=== PATIENT | male | born 1940 | race Caucasian/White ===

== ENCOUNTER 2016-11-26 14:02 | Observation (INO) | payer OTHER ==
--- NOTE | 2016-11-26 14:32 | RAD ---
INDICATION: Aphasia and visual disturbance COMPARISON: CT of the brain dated December 02, 2015 TECHNIQUE: Contiguous axial sections of the brain were obtained from the skull base to the vertex without contrast. FINDINGS: The ventricles, cisterns and sulci exhibit symmetric involutional changes unchanged from the previous CT of the brain. There is mild periventricular and subcortical white matter hypoattenuation compatible chronic microvascular disease. The lai-white matter differentiation is adequately maintained and there is no sulcal effacement. No significant focal abnormality or mass effect is present. There is no evidence for intracranial hemorrhage. No significant focal osseous abnormality is present. The mastoid air cells appear clear. There is mild mucosal thickening of the visualized maxillary sinuses and bilateral ethmoid air cells. IMPRESSION: No acute abnormality including signs of territorial infarction or acute extra-axial hemorrhage. Findings were reported to Dr. Brown over the telephone at 1425 hours on November 26, 2016.
[2016-11-26 14:49] LABS: Hematocrit 36 % (42-52); Hemoglobin 12.2 g/dl (14.0-18.0); Mean Corpuscular HGB Conc 34 g/dl (31-36); Mean Corpuscular Hemoglobin 29 pg (27-31); Mean Corpuscular Volume 86 fL (80-94); Mean Platelet Volume 8 um3 (7.4-10.4); Red Blood Count 4.19 10^6/ul (4.0-5.4); Red Cell Distribution Width 14 % (10.5-15); White Blood Count 6.6 10^3/ul (3.5-10.8)
[2016-11-26 15:02] LABS: Albumin 4.2 g/dL (3.2-5.2); BUN/Creatinine Ratio 15.6 (8-20); Calcium 9.5 mg/dL (8.6-10.3); EGFR African American 54.6 (>60); EGFR Non-African American 42.5 (>60); Globulin 3.3 g/dL (2-4); HDL Cholesterol 36.8 mg/dL; Potassium 4.5 mmol/L (3.5-5.0); Total Bilirubin 0.4 mg/dL (0.2-1.0); Total Protein 7.5 g/dL (6.4-8.9)
[2016-11-26] MEDS ORDERED: Iodixanol* (CONTRAST) 320 MG/ML 100 ML SDV IV ONE (15:15)
--- NOTE | 2016-11-26 15:20 | RAD ---
INDICATION: Expressive aphasia COMPARISON: Chest x-ray January 25, 2006 TECHNIQUE: Single AP portable view of the chest was obtained. FINDINGS: Image quality is compromised due to the relative inferiority of a portable chest x-ray. The heart and mediastinum exhibit normal size and contour. The lungs are grossly clear. There is no evidence of a large pleural effusion. Visualized bones are normal for the patient's age. IMPRESSION: No radiographic evidence for acute cardiopulmonary abnormality on this portable chest x-ray.
[2016-11-26] MEDS ORDERED: Dextrose 50% Syringe 50 ML* 25 GM/50 ML SYRINGE IV PUSH PRN (16:25)
--- NOTE | 2016-11-26 17:05 | RAD ---
CPT II: CPT II Codes: 3100F INDICATION: Aphasia COMPARISON: Same day CT of the brain without contrast TECHNIQUE: A CT angiogram of the head and neck was performed with 80 cc of Visipaque 320. Contiguous axial sections were obtained from the thoracic inlet through the [place] of [place]. Images were reconstructed in the sagittal, coronal planes and in a 3-D volume rendered format. The distal cervical internal carotid artery diameter is used as the denominater for stenosis measurement. CTA NECK: The common and internal carotid arteries are patent without hemodynamically significant stenosis. There is calcified atherosclerosis at the arch of the aorta. Right: Below the carotid bifurcation the right common carotid artery measures 6 mm in diameter. Eccentric partially calcified atherosclerosis at the carotid bulb narrows the proximal most portion of the right internal carotid artery to 4 mm in diameter. This yields approximately 33% degree stenosis. Left: Measured immediately below the carotid bifurcation the left common carotid artery measures 6 mm in diameter and the left internal carotid artery immediately beyond the bifurcation also measures 6 mm in diameter yielding 0% degree stenosis. The vertebral arteries are patent without gross abnormality. CTA of the brain: The horizontal portion of the petrous carotid arteries exhibit narrowing and irregularity (for example image 199 of 301). At the clinoid level there is calcified atherosclerosis worse in the left than the right, of the bilateral internal carotid arteries. The anterior and middle cerebral arteries appear are patent without high grade stenosis or occlusion. The vertebral, basilar and posterior cerebral arteries appear patent without high grade stenosis or occlusion. The posterior communicating arteries appear to be absent bilaterally. No focal luminal filling defect, aneurysm or vascular malformation is seen. IMPRESSION: 1. According to the thoracic criteria there is approximately 33% degree narrowing at the right carotid bulb due to partially calcified atherosclerosis. 2. Elsewhere there is mixed attenuation atherosclerotic disease of the arteries of the head and neck as described above. 3. there is no focal occlusion or other acute arterial abnormality in the head and neck.
[2016-11-26] MEDS: Insulin LISPRO* 1 UNITS UNIT SUBCUT SCH (17:26)
[2016-11-26 18:05] LABS: Urine Bilirubin Negative (Negative); Urine Glucose Negative (Negative); Urine Nitrite Negative (Negative)
--- NOTE | 2016-11-26 18:24 | PN ---
Hospitalist Progress Note HOSPITALIST ADDENDUM Case reviewed and d/w oMo QUINONEZ. Mr. Da Silva is a 76yo M with PMH of TIA, who presented to ED with c/o visual changes. Labs, CT brain and EKG reviewed. Neurology consult requested for possible CVA. Agree with current management.
[2016-11-26 19:00] LABS: HDL Cholesterol 32.1 mg/dL
--- NOTE | 2016-11-26 20:06 | CONS ---
NEUROLOGY CONSULTATION REPORT: DATE OF CONSULT: 11/26/16 The patient is in the emergency department. REASON FOR CONSULT: Anirudh Delgado. 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 He was reading and suddenly noticed that he was having difficulty reading, which sounds like he was having difficulty comprehending what he was reading. However, he tested his vision with each eye independently and noticed that his vision in his right eye was significantly worse than the vision in his left eye. In additional to this, he began trying to think of names of his physicians and he was unable to think of his primary care physician 's name and was unable to think of the word brim molder as well. He alerted his that something was wrong and presented for evaluation. Over the course of his evaluation in the emergency department, his symptoms were significantly improving. He notes that he had a TIA approximately a year ago with symptoms of difficulty getting words out. This was very brief and he did not seek care initially for this episode but subsequently had a workup including a recent 30- day cook manager, carotid ultrasound about a year ago , and he was recently changed from aspirin to Plavix by his recollection. He was not given TPA in the emergency department as his NIH stroke scale was 0 and his symptoms were significantly improving. PAST MEDICAL HISTORY: 1. Diabetes. 2. Hypertension. 3. Hyperlipidemia. 4. TIA, November 2015. MEDICATIONS: 1. Metformin 500 mg twice daily. 2. Cholesterol medications, which the patient reports was recently changed and he is not sure of the name. The medication listed in the computer is Pravachol 20 mg daily but not certain that he is still on this medication. 3. Fish oil 1000 mg daily. 4. Metoprolol 25 mg daily. 5. Enalapril 10 mg daily. 6. Plavix 75 mg daily. ALLERGIES: ATORVASTATIN causes myalgias. FAMILY HISTORY: There is a family history of diabetes as well as heart disease and heart attacks but all in people of greater than 80 years old. He also thinks his paternal grandfather may have passed from stroke. 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 He is a nonsmoker. He drinks alcohol occasionally. He denies any illicit drug use. He lives with his . REVIEW OF SYSTEMS: Negative aside from as mentioned in the HPI. PHYSICAL EXAMINATION: Vital Signs: Temperature 98 degrees, blood pressure 156/ 114 on admission and recheck after his CT scan was 166/70, heart rate 68 and he is in normal sinus rhythm, oxygen saturation 98% on room air. On general examination, he is in no acute distress. He is mildly obese. The heart reveals regular rate and rhythm with no murmurs, rubs, or gallops. Lungs are clear to auscultation bilaterally. There are no carotid bruits. He has some lower extremity edema. On neurologic examination, he is fully awake, alert, and oriented. Naming, reading of the stroke cards is fully intact. He was able to describe the cookie theft picture without difficulty. Visual acuity in the right eye was 20/ 100 and in the left eye was 20/30 with 1 error. No red desaturation. Pupils are equal, round, and reactive from 3 to 2 mm bilaterally. Versions are full without nystagmus. Visual uribe are full to confrontation. Facial sensation and musculature is full and symmetric. Hearing is intact to finger rub. The palate elevates symmetrically and tongue protrudes in the midline. Shoulder shrug is 5/5 and symmetric. On motor examination, there is normal bulk and tone in the upper and lower extremities. Strength is full without any pronator drift. Sensation is intact to light touch and there is no extinction to double simultaneous stimulation in the upper or lower extremities. Finger-to- nose and becv-vf-dfbv are intact without ataxia. Reflexes are 2+ in the upper extremities, 2+ at the knees and absent at the ankles with downgoing toes bilaterally. He was not ambulated in the emergency department. NIH stroke scale was 0. DATA: Laboratory data is pending at this time. Noncontrast brain CT was personally reviewed and showed no evidence of acute or subacute ischemia, no hemorrhage. Carotid Dopplers done in November 2015 indicated there was less than 50% stenosis bilaterally. IMPRESSION: Bertarnd Da Silva is a 76-year-old man with multiple vascular risk factors presenting with transient neurologic difficulties characterized by difficulty reading, decreased vision in the right eye, as well as trouble thinking of names of people he should know. These problems improved over the course of his emergency department evaluation, his NIH stroke scale was 0 and he was not given TPA as a result. He should be admitted to the hospital for a TIA workup, which will include a CT angiogram of the head and neck and monitoring on telemetry. He mentioned that his recent event monitor showed some sort of abnormality but he is not sure what this was or the significance of this. This information is not available at the time of this dictation. At this time, we will continue him on Plavix but consideration to be given to changing to Aggrenox. He should have an MRI of the brain as well but this can likely wait until he is an outpatient. He should also have echocardiogram with bubble study and measuring of his lipids and hemoglobin A1c. Thank you for this consultation. [id number]/[facility] #: [id number] WYATT
--- NOTE | 2016-11-26 20:47 | HP ---
ADMISSION HISTORY AND PHYSICAL: DATE OF ADMISSION: 11/26/16 PRIMARY CARE PROVIDER: Dr. Blanco. PRIMARY EMPLOYEE RELATIONS ADVISOR: Dr. Morris. CONSULTING NEUROLOGIST: Dr. Ham. ATTENDING PHYSICIAN: Ghassan Garcia MD* (DICTATED BY CRISTIANO CONNELLY) CHIEF COMPLAINT: Blurred vision and garbled speech. HISTORY OF PRESENT ILLNESS: This is a 76-year-old gentleman with a history of prior TIA, known coronary artery disease status post PCI in 2002 as well as moderate aortic stenosis, hypertension, and controlled hzr-ywzzxva-yagmarrra diabetes. He presented to the emergency department with difficulty speaking and blurred vision. The patient states that he was having some difficulty reading this morning due to blurred vision and upon covering each eye, it seems that his right eye was significantly blurred. He then developed some difficulty speaking that lasted for about 45 minutes. He had no associated weakness, numbness, or tingling. No tumbling or falling. No complaints of chest pain, palpitations, or shortness of breath. The patient's difficulty with speech and word finding lasted approximately 45 minutes. He believes his vision has improved but states that his right eye is still blurred. He is unsure of the acuity of his right eye, the vision in his right eye being blurred as he does believe that his binocular vision has improved back to baseline for him. Of note, the patient's vascular medications have recently been changed within the last 10 to 14 days. He was switched from full dose aspirin to Plavix and from pravastatin to Crestor. The patient states that there was no acute event that prompted these medication changes. From the description, it sounds like there is a desire to be more aggressive with risk management to avoid recurrent CVA. The patient is followed by Dr. Morris and based on chart review appears to have last been seen in August. He underwent thorough evaluation following that for paroxysmal atrial fibrillation. He underwent a 24-hour Holter monitor , which did not show any significant dysrhythmias and then a 30-day event monitor that showed one 5-beat run of V-tach and a short run of rather slow SVT during both of which he was asymptomatic. Background rhythm was otherwise sinus , no AFib identified. The patient notes that his diabetes is well controlled. His last hemoglobin A1c was 5.6%. PAST MEDICAL HISTORY: 1. Stage 3 chronic kidney disease. 2. Uff-qbuhsgu-qbdakqtgz diabetes - well controlled. 3. History of TIA, November 2015. 4. Hypertension. 5. Coronary artery disease, status post PCI in 2002. 6. Moderate aortic stenosis with last echo being 1 year ago. PAST SURGICAL HISTORY: 1. Bilateral total hip arthroplasty. 2. PCI, 2002. 3. Ankle surgery. 4. Shoulder surgery. HOME MEDICATIONS: 1. Plavix 75 mg p.o. daily. 2. Enalapril 10 mg p.o. daily. 3. Glipizide 5 mg p.o. daily. 4. Metoprolol succinate 25 mg p.o. daily. 5. Fish oil 1000 mg p.o. daily. 6. Crestor 10 mg p.o. daily. 7. Metformin 500 mg p.o. twice daily. 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 He was a social smoker for several years with less than 10 pack a year history but quit about 35 years ago. He has occasional alcohol consumption and lives with his and son. REVIEW OF SYSTEMS: As noted above in HPI and otherwise negative. PHYSICAL EXAMINATION GENERAL: This is a very pleasant elderly gentleman who appears younger than his stated age who is in no acute distress, lying comfortably in an emergency department stretcher, accompanied by his . INITIAL VITALS: Temperature 98 degrees Fahrenheit, pulse 68 beats per minute, respiratory rate 18 per minute, oxygen saturation 98% on room air, and blood pressure 156/114 mmHg. HEENT: Head is normocephalic and atraumatic. Mucous membranes are pink and moist. NECK: Neck is free of lymphadenopathy and supple with no JVD. RESPIRATORY: Lungs are clear to auscultation without wheezes, crackles, or rhonchi. CARDIOVASCULAR: Heart has regular rate and rhythm without murmurs, rubs, or gallops. ABDOMEN: Abdomen is soft and nontender to palpation. EXTREMITIES: Trace lower extremity edema. SKIN: No concerning rashes or lesions noted on limited exam. NEUROLOGIC: Cranial nerves II through XII are intact. Romberg is negative. Aulksa-sq-aszp testing is within normal limits. Strength is 5/5 in all extremities. Sensation is grossly intact and gait is not specifically evaluated. LABORATORY DATA: CBC is unremarkable with white blood cell count of 6600, hemoglobin of 12.2 g/dL and a platelet count of 204,000. INR normal at 0.94. Comprehensive metabolic panel shows a sodium of 137 mmol/L, potassium 4.5, BUN of 25, creatinine 1.6, random glucose of 115 mg/dL, lactic acid normal at 1.5. Transaminases and total bilirubin are within normal limits. Troponin is negative at 0.00. Total cholesterol of 161, LDL of 62. Triglycerides of 311. This is nonfasting. IMAGING: EKG shows sinus arrhythmia without ischemic changes. CT of the brain shows no acute disease. Chest x-ray shows no acute disease. CTA of the head and neck is pending. ASSESSMENT AND PLAN: This is a 76-year-old gentleman with a history of prior transient ischemic attack, chronic kidney disease controlled, non-insulin- dependent diabetes, moderate aortic stenosis, coronary artery disease with prior PCI and hypertension and hyperlipidemia who presented after an acute episode of difficulty with word findings and blurred vision. 1. Cerebrovascular accident versus transient ischemic attack. The patient has been evaluated by neurologist, Dr. Ham, in the emergency department. There is concern for a cerebrovascular accident. He did undergo thorough workup following his transient ischemic attack almost exactly a year ago. Bubble study at that time was negative. He does have moderate aortic stenosis. Event monitor is negative for paroxysmal atrial fibrillation. His antiplatelet therapy was actually recently escalated from aspirin to Plavix and his statin therapy was switched from pravastatin to Crestor. Plan to admit for continuous telemetry monitoring. The patient will require an MRI of the brain and we will repeat his echocardiogram. We will defer to Neurology in terms of recommendations for his antiplatelet therapy. He was on aspirin after his last transient ischemic attack but recently switched to Plavix, which he has been taking appropriately for the last 10 to 14 days. We will plan to continue his Plavix at this time. CTA of the head and neck is pending at this time. 2. Chronic kidney disease - creatinine appears to be near baseline. 3. Ucj-afmlehc-blreksaix diabetes. The patient reports last hemoglobin A1c is 5.6%. I will hold his metformin especially after given contrast for a CTA and his morning glipizide while he is here in the hospital and cover with sliding scale Humalog for hyperglycemia. 4. History of prior transient ischemic attack. 5. Hypertension - we will hold his enalapril at this time to allow for permissive hypertension. 6. Coronary artery disease, status post PCI in 2012 - last echocardiogram showed no focal wall motion abnormalities or depressed ejection fraction. No evidence of acute coronary syndrome. He will continue statin and Plavix and his beta-jessica at this time. 7. Moderate aortic stenosis based on echo, November 2015. 8. Hyperlipidemia. We will check a fasting lipid panel as his triglycerides are quite elevated on his random lipids done on admission in the emergency department. 9. Code status. The patient is full code. 10. Healthcare proxy is his . 11. DVT prophylaxis. Chemical prophylaxis is contraindicated in the setting of concern for acute cerebrovascular accident. DISPOSITION: The patient is being admitted for observation status with pending further imaging. Anticipate possible discharge tomorrow as the patient's initial deficits have nearly resolved. CRISTIANO CONNELLY CC: Dr. Blanco; Dr. Morris * [id number]/[facility] #: [id number] [facility] HOSPITALYessi
[2016-11-27] MEDS ORDERED: Atorvastatin* 20 MG TAB PO SCH (09:00)
[2016-11-27] MEDS ORDERED: Enalapril TAB* 5 MG PO SCH (09:00)
[2016-11-27] MEDS ORDERED: Clopidogrel TAB* 75 MG PO SCH (09:00)
[2016-11-27] MEDS: Metoprolol Succinate XL TAB* 25 MG PO SCH ×2 (09:56→10:15)
[2016-11-27] MEDS: Insulin LISPRO* 1 UNITS UNIT SUBCUT SCH ×2 (10:15→12:42)
--- NOTE | 2016-11-27 10:52 | ECHO ---
Patient: VINH MCMAHON [facility] Rec#: [id number] : 1940 Date: 11/27/2016 Age: 76y Height: 177.8 cm / 70.0 in Weight: 95.3 kg / 210.0 lbs Sex: M BSA: 2.1 Room#: 442 Admit Date#: 11/26/2016 Type: Inpatient Referring: Moo Hunter Reading: Lenard Brower MD Wire Winding Machine Tender: Bianca Aguilar RN RDCS CC: Lara Morris MD CC: Kate Blanco MD Transthoracic Echocardiogram Indication: CVA BP: 101/49 HR: 57 Rhythm: Bradycardia Findings History: CAD with PCI 2002, aortic stenosis, HTN, HLD, DM, TIA, CKD Technical Comments: The study is technically limited due to patient body habitus. Completed at 1025. Left Ventricle: The left ventricular chamber size is normal. Mild concentric left ventricular hypertrophy is observed. Global left ventricular wall motion and contractility are within normal limits. Left ventricular systolic function is at the lower limits of normal. The estimated ejection fraction is 50-55%. Abnormal left ventricular diastolic filling is observed, consistent with impaired relaxation. Left Atrium: The left atrium is mild to moderately dilated. Right Ventricle: The right ventricular cavity size is normal. The right ventricular global systolic function is low normal. Right Atrium: The right atrium is mild to moderately dilated. Aortic Valve: The aortic valve is trileaflet. The aortic valve leaflets are mildly thickened. Systolic excursion of the aortic valve cusps is reduced. There is aortic annular calcification. There is mild aortic regurgitation. There is mild aortic stenosis. The dimensionless index is 0.61. The mean gradient of the aortic valve is 11 mmHg. The peak instantaneous gradient of the aortic valve is 19 mmHg. The aortic valve area, by peak velocities, is calculated at 2 cm2. The aortic valve area, by VTI's, is calculated at 1.9 cm2. Mitral Valve: There is mitral annular calcification. The mitral valve leaflets are mildly thickened. There is mild to moderate mitral regurgitation. There is no evidence of mitral stenosis. Tricuspid Valve: The tricuspid valve leaflets are normal. There is trace to mild tricuspid regurgitation. Unable to estimate the right ventricular systolic pressure. Pulmonic Valve: The pulmonic valve appears normal in structure and function. There is trace to mild pulmonic regurgitation. There is no pulmonic stenosis. Pericardium: There is no significant pericardial effusion. A pericardial fat pad is visualized. Aorta: There is no dilatation of the ascending aorta. The aortic arch is not well visualized. There is no dilation of the aortic root. Pulmonary Artery: The main pulmonary artery appears normal. Venous: The inferior vena cava appears normal in size. There is a greater than 50% respiratory change in the inferior vena cava dimension. Conclusions The left ventricular chamber size is normal. Mild concentric left ventricular hypertrophy is observed. The estimated ejection fraction is 50-55%. Abnormal left ventricular diastolic filling is observed, consistent with impaired relaxation. The left atrium is mild to moderately dilated. The right atrium is mild to moderately dilated. There is mild aortic regurgitation. There is mild aortic stenosis. The dimensionless index is 0.61. There is mild to moderate mitral regurgitation. There is trace to mild tricuspid regurgitation. Unable to estimate the right ventricular systolic pressure. There is trace to mild pulmonic regurgitation. Measurements Name Value Normal Range RVDdMajor (2D) 4.2 cm (2.2 - 4.4) RAd ISD 4CH 5.8 cm (3.4 - 4.9) RA (A4C)W 4.9 cm (2.9 - 4.6) IVSd (2D) 1.1 cm (0.6 - 1) LVPWd (2D) 1.1 cm (0.6 - 1) LVIDd (2D) 5.2 cm (3.6 - 5.4) LVIDs (2D) 3.5 cm - LV FS (2D) 33 % (25 - 45) Aortic Annulus 2.2 cm (1.4 - 2.6) Ao root diameter (2D) 2.9 cm (2.1 - 3.5) Ascending Ao 2.8 cm (2.1 - 3.4) LA dimension (AP) 2D 4.5 cm (2.3 - 3.8) LAd ISD 4CH 6.2 cm (2.9 - 5.3) LA ISD 4CH W 4.8 cm (2.5 - 4.5) Name Value Normal Range LA ESV SP 4CH (A/L) 78 ml - LA ESV SP 2CH (A/L) 81 ml - LA ESV BP (A/L) 85 ml - LA ESV BP (A/L) index 39.8 ml/m2 - LA ESV SP 4CH (MOD) 71 ml - LA ESV SP 2CH (MOD) 76 ml - Name Value Normal Range MV E-wave Vmax 0.85 m/sec - MV deceleration time 260 msec - MV A-wave Vmax 1.1 m/sec - MV E:A ratio 0.78 ratio - LV septal e' Vmax 0.07 m/sec - LV lateral e' Vmax 0.09 m/sec - LV E:e' septal ratio 12.1 ratio - LV E:e' lateral ratio 9.4 ratio - Name Value Normal Range AV Vmax 2.2 m/sec - AV VTI 53.9 cm - AV peak gradient 19 mmHg - AV mean gradient 11 mmHg - LVOT diameter 2 cm - LVOT Vmax 1.4 m/sec - LVOT VTI 32.9 cm - FREDDY (continuity Vmax) 2 cm2 - FREDDY (continuity VTI) 1.9 cm2 - AR PHT 570 msec - Name Value Normal Range IVC diameter 2 cm - Name Value Normal Range PV Vmax 0.9 m/sec -
[2016-11-27 12:57] VITALS: BP 128/57
--- NOTE | 2016-11-27 13:21 | DCNOTE ---
Patient seen this morning. No recurrence of symptoms. Sinus nida on tele. On exam, RRR, s1 and s2 present, no m/g/r, lungs CTA B/L, no w/r/r, CN II-XII intact, strength 5/5 throughout UEs and LEs, sensation intact and symmetric, language intact Spoke with Dr. Ham. Did not feel bubble study was needed as initial TTE done w /o it. Continue current Plavix/Statin regimen. Can get outpatient MRI. F/U with PCP and Dr. Ham as an outpatient.
--- NOTE | 2016-11-27 16:08 | RAD ---
HISTORY: Word finding and inability to read for approximately 45 minutes the previous day COMPARISONS: CTA head and neck November 26, [address] of the brain November 26, 2016. TECHNIQUE: The following sequences were obtained of the head: Sagittal T1-weighted images, axial T2-weighted images, axial FLAIR images, axial susceptibility weighted images, axial T1-weighted images. Additionally, axial diffusion-weighted images were obtained with calculated apparent diffusion coefficients.. FINDINGS: HEMORRHAGE/INFARCT: There is no hemorrhage or acute infarct. MASSES/SHIFT: There is no mass or shift. EXTRA-AXIAL SPACES/MENINGES: There are no extra-axial fluid collections. SULCI AND VENTRICLES: The sulci and ventricles are normal in size and position for the patient's stated age. CEREBRUM: There are no focal parenchymal abnormalities. BRAINSTEM: There are no focal parenchymal abnormalities. CEREBELLUM: There are no focal parenchymal abnormalities. The cerebellar tonsils are normal in size and position. SELLA: The sella is normal. PINEAL: The pineal region is clear. CP ANGLE/TEMPORAL BONES: The labyrinthine structures are grossly normal. VESSELS: Normal flow-voids are noted within the visualized vertebral vasculature. DIFFUSION ABNORMALITIES: There are no diffusion abnormalities. PARANASAL SINUSES/MASTOIDS: There is increased T2 weighted signal at the left mastoid air cells. ORBITS: The orbits are unremarkable. BONES AND SOFT TISSUE: No bone or soft tissue abnormalities are noted. IMPRESSION: 1. NO EVIDENCE OF ACUTE TERRITORIAL OR FOCAL INFARCTION. 2. FLUID DENSITY AT THE LEFT MASTOID AIR CELLS COULD BE SEEN IN THE SETTING OF MASTOIDITIS. PLEASE CORRELATE TO PATIENT'S PHYSICAL EXAMINATION.
--- NOTE | 2016-11-27 22:13 | DS ---
DISCHARGE SUMMARY: DATE OF ADMISSION: 11/26/16 DATE OF DISCHARGE: 11/27/16 PRIMARY CARE PHYSICIAN: Dr. Blanco. PRINCIPAL DISCHARGE DIAGNOSIS: Transient ischemic attack. DISCHARGE MEDICATION REGIMEN: 1. Metformin 500 mg by mouth 2 times daily. 2. Toprol-XL 25 mg by mouth daily. 3. Fish oil 1000 mg by mouth daily. 4. Plavix 75 mg by mouth daily. 5. Enalapril 10 mg by mouth daily. 6. Glipizide 5 mg by mouth daily. 7. Rosuvastatin 10 mg by mouth daily. STUDIES DONE DURING HOSPITALIZATION: CT of the brain without contrast, impression: No acute abnormalities including signs of territorial infarction or acute extra- axial hemorrhage. Chest x-ray, impression: No radiographic evidence for acute cardiopulmonary abnormality. CTA of the head and neck, impression: According to the thoracic criteria, there is approximately 33% degree narrowing at the right carotid bulb due to partially calcified atherosclerosis elsewhere. There is mixed attenuation of atherosclerotic disease of arteries of the head and neck as described above. There is no focal occlusion of other acute arterial abnormalities in the head and neck. MRI of the brain, impression: No evidence for acute territorial or focal infarction. Fluid density of the left mastoid air cells could be seen in the setting of mastoiditis. Transthoracic echocardiogram, conclusions: Normal left ventricular chamber size , mild concentric LVH, estimated ejection fraction of 50% to 55%, abnormal left ventricular diastolic filling is observed consistent with impaired relaxation. The left atrium is mild to moderately dilated. The right atrium is mild to moderately dilated. There is mild aortic regurgitation, mild aortic stenosis, mild-to- moderate mitral regurgitation, eleds-jx-hsft tricuspid regurgitation, gitso-wh-zhum pulmonic regurgitation. CONSULTANTS DURING HOSPITALIZATION: Dr. Shantelle Ham, Neurology. HISTORY OF PRESENT ILLNESS AND HOSPITAL SUMMARY: Please see the full history and physical by CRISTIANO Harrell, for full details. Briefly, Mr. Da Silva is a 76- year-old man with a past medical history of TIA, CAD, moderate aortic stenosis, hypertension, diabetes, who presented to the hospital after he had some blurred vision and word-finding difficulties. Symptoms lasted approximately 45 minutes and resolved. Of note, the patient recently underwent medication changes from full- dose aspirin to Plavix and from pravastatin to rosuvastatin. This was at the discretion of Dr. Morris and his PCP, Dr. Blanco. The patient was seen by Neurology and underwent a full stroke workup that was largely negative. It was felt that the patient for now should continue on the Plavix and rosuvastatin as these were changed recently. Dr. Ham entertained the thought of possibly switching to Aggrenox but decided against this for now. He will follow up with Dr. Ham in the clinic as well with his PCP, Dr. Blanco. TIME SPENT: Total time spent on this discharge 35 minutes. This is the summary of hospitalization, please see the full medical records for further details. CC: Dr. Blanco; Dr. Shantelle Ham; Dr. Lara Morris, Cardiology* [id number]/CPS #: [id number] [facility]
--- NOTE | 2016-11-27 22:15 | ED ---
Jim Loyd Rebecca, scribed for Dallas Brown MD on 11/26/16 at 1417 . Neurological HPI - HPI Summary HPI Summary: Pt is a 76 y/o M who presents to ED c/o expressive aphasia and difficulty understanding words. Sx began suddenly at 1330 and have been constant since onset. Pt reports "I could read the words, but could not get the meaning," further stating "it wasn't just an issue seeing the words, it was really just putting them together in a meaningful way." additionally states that he couldn't find the words he was looking for while talking to him. States that sx seem to be improving. Sx aggravated and alleviated by nothing. Confirms that he is typically able to read very well. Took 2 [employer]. PMHx DM, TIA (1 year ago) . For 1 minute, pt was unable to find his words while talking with a colleague. Takes Metformin. Takes blood thinners, changed to Plavix 1 week ago. Medical records reviewed for 11/2015 showing an essentially normal carotid Doppler. - History of Current Complaint Chief Complaint: EDAltMentalStatus Stated Complaint: DIFF SPEAKING/READING Time Seen by Provider: 11/26/16 14:09 Hx Obtained From: Patient Onset/Duration: Sudden Onset, Started hours ago - at 1330 Timing: Constant Onset Severity: Moderate Current Severity: Mild Pain Intensity: 0 Pain Scale Used: 0-10 Numeric Aggravating: Nothing Alleviating: Nothing Associated Signs and Symptoms: Positive: Impaired Speech - expressive aphasia - Allergy/Home Medications Allergies/Adverse Reactions: Allergies Allergy/AdvReac Type Severity Reaction Status Date / Time No Known Allergies Allergy Verified 06/02/16 10:21 PMH/Surg Hx/FS Hx/Imm Hx Endocrine/Hematology History: Reports: Hx Diabetes Cardiovascular History: Reports: Hx Coronary Artery Disease, Hx Hypercholesterolemia, Hx Hypertension Neurological History: Reports: Hx Transient Ischemic Attacks (TIA) Infectious Disease History: No Infectious Disease History: Denies: Traveled Outside the [place] in Last 30 Days - Family History Known Family History: Positive: Cardiac Disease, Diabetes - Social History 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 (-) Distressed Skin: Warm, Dry HENT: Eyes: Conjunctiva normal Neck: Musculoskeletal ROM normal neck. (-) JVD, (-) Stridor, (-) Tracheal deviation Cardio: Rhythm regular, rate normal, Heart sounds normal; Intact distal pulses ; The pedal pulses are 2+ and symmetric. Radial pulses are 2+ and symmetric. (- ) Murmur Pulmonary/Chest wall: Effort normal. (-) Respiratory distress, (-) Wheezes, (-) Rales Abd: Soft. (-) Tenderness, (-) Distension, (-) Guarding, (-) Rebound Musculoskeletal: (-) Edema Lymph: (-) Cervical adenopathy Neuro: Alert, Oriented x3, Strength normal, Cranial nerves II-XII are grossly intact, mild naming difficulties of people, i.e. emergency department manager, univreisyt president, the word 'senior staff specialized employment," difficulty naming medications, (-) Dysmetria , (-) Nystagmus, (-) Ataxia by finger to nose testing, (-) Sensory deficit. Psych: Mood and affect Normal Visual acuity: 20/30 in the left eye, 20/100 in the right Triage Information Reviewed: Yes Vital Signs On Initial Exam: Initial Vitals Temp Pulse Resp BP Pulse Ox 98 F 68 18 156/114 98 11/26/16 14:06 11/26/16 14:06 11/26/16 14:06 11/26/16 14:06 11/26/16 14:06 Vital Signs Reviewed: Yes Diagnostics - Vital Signs Vital Signs Temp Pulse Resp BP Pulse Ox 11/26/16 14:06 98 F 68 18 156/114 98 - Laboratory Result Diagrams: 11/26/16 14:35 11/26/16 14:35 Lab Statement: Any lab studies that have been ordered have been reviewed, and results considered in the medical decision making process. - CT Brain CT CT Interpretation: No Acute Changes CT Interpretation Completed By: Radiologist - EKG 1331 Cardiac Rate: NL - [address] Segment: Normal EKG Interpretation: No STEMI Course/Dx - Course Assessment/Plan: Pt is a 76 y/o M who presents to ED to r/o TIA with a CC of expressive aphasia and and difficulty understanding words' meanings since 0 today. PMHx TIA. Brain CT reveals no acute pathology. Dr. Ham evaluated pt in ED. Discussed care of pt with Dr. Brothers, who accepts pt for admission. - Diagnoses Provider Diagnoses: CVA (cerebral vascular accident) During the Visit The Following Alert/Code Occurred: Code Rhodes - Physician Notifications Discussed Care of Patient With: Dr. Ham, evlauated pt in the ED. Dr. Brothers at 1512 who accepts pt for admission. Discharge - Discharge Plan Condition: Good Disposition: ADMITTED TO [facility] The documentation as recorded by the Jim houser Rebecca accurately reflects the service I personally performed and the decisions made by , Dallas Brown MD.
== END 2016-11-27 16:35 | disposition home or self-care (01) ==
LOC: ED 14:02 → MEDTELE 15:25
PROVIDERS: ADMIT Internal Medicine; ATTEND Hospitalist
DX: G45.9 Transient cerebral ischemic attack, unspecified (principal); I12.9 Hypertensive chronic kidney disease with stage 1 through stage 4 chronic kidney disease, or unspecified chronic kidney disease; N18.3 Chronic kidney disease, stage 3 (moderate); I25.10 Atherosclerotic heart disease of native coronary artery without angina pectoris; E11.9 Type 2 diabetes mellitus without complications; Z79.84 Long term (current) use of oral hypoglycemic drugs; I35.0 Nonrheumatic aortic (valve) stenosis; Z79.899 Other long term (current) drug therapy; Z79.02 Long term (current) use of antithrombotics/antiplatelets; Z86.73 Personal history of transient ischemic attack (TIA), and cerebral infarction without residual deficits; I49.1 Atrial premature depolarization; I51.7 Cardiomegaly
CPT/HCPCS: 36415; 70450; 70496; 70498; 70551; 71010; 80053; 80061; 81003; 83036; 83605; 84484; 85025; 85610; 85730; 86850; 86900; 86901; 93005; 93306; 99284; A9270-GY; G0378; Q9967

== ENCOUNTER 2018-11-16 14:42 | Observation (INO) | payer MEDICARE, OTHER ==
[2018-11-16 15:19] LABS: ABS Basophils 0 10^3/ul (0-0.2); ABS Eosinophils 0.3 10^3/ul (0-0.6); ABS Lymphocytes 1.6 10^3/ul (1.0-4.8); ABS Monocytes 0.5 10^3/ul (0-0.8); ABS Neutrophils 4.3 10^3/ul (1.5-7.7); ABS Nucleated RBC 0 10^3/ul; Eosinophil % 4.9 %; Hematocrit 36 % (42-52); Hemoglobin 12.5 g/dl (14.0-18.0); Lymphocyte % 23.3 %; Mean Corpuscular HGB Conc 35 g/dl (31-36); Mean Corpuscular Hemoglobin 31 pg (27-31); Mean Corpuscular Volume 89 fL (80-94); Mean Platelet Volume 8.1 fL (7.4-10.4); Nucleated Red Blood Cells % 0.1; Platelet Count 188 10^3/ul (150-450); Red Blood Count 4.03 10^6/ul (4.00-5.40); Red Cell Distribution Width 13 % (10.5-15); White Blood Count 6.8 10^3/ul (3.5-10.8)
--- NOTE | 2018-11-16 15:27 | ED ---
Neurological HPI - HPI Summary HPI Summary: A 78 y/o male brought in by his son and present to [facility] with a chief complaint of having difficulty with speech and reading at around 14:25 lasting a couple minutes. Last known well time is 14:20. Anirudh Delgado was called at 14:[address] was taken at 15:00. He feels back to baseline in the ED room. He denies fever, chills, erythema (eyes), sore throat, chest pain, shortness of breath, cough, abdominal pain, vomiting, nausea, dysuria, hematuria , myalgia, edema, rash and dizziness. He has type two DM and takes medication. He is on eliquis for Afib. In the ED room vital signs are HR 65 bpm BR 170/72. He has a heart monitor and his fast brim pouncer is Dr. Morris. He reports a Hx of TIA. - History of Current Complaint Chief Complaint: EDNeurologicalDeficit Stated Complaint: DIFF WITH SPEECH/READING EARLIER TODAY Hx Obtained From: Patient Onset/Duration: Sudden Onset, Started minutes ago, Resolved Timing: Intermittent Episodes Lasting: - minutes Onset Severity: Moderate Current Severity: Mild Pain Intensity: 0 Pain Scale Used: 0-10 Numeric Character: Impaired Speech, Other: - difficulty reading Episode Lasting: Seconds/Minutes Aggravating: Nothing Alleviating: Nothing Associated Signs and Symptoms: Positive: Impaired Speech. Negative: Loss of Consciousness, Nausea/Vomiting, Fever, Diarrhea, Chest Pain, Shortness of Breath - Additional Pertinent History Primary Care Physician: [id number] - Allergy/Home Medications Allergies/Adverse Reactions: Allergies Allergy/AdvReac Type Severity Reaction Status Date / Time atorvastatin Allergy Unknown Verified 11/16/18 15:40 Reaction Details ezetimibe Allergy Unknown Verified 11/16/18 15:40 Reaction Details simvastatin Allergy Unknown Verified 11/16/18 15:40 Reaction Details Home Medications: Home Medications Apixaban* [Eliquis*] 5 mg PO BID 11/16/18 [History Confirmed 11/16/18] Ascorbic Acid TAB* [Vitamin C TAB*] 500 mg PO DAILY 11/16/18 [History Confirmed 11/16/18] Aspirin EC TAB* [Ecotrin EC Low Dose 81 MG*] 81 mg PO DAILY 11/16/18 [History Confirmed 11/16/18] Cyanocobalamin TAB* [Vitamin B12 TAB*] 1,000 mcg PO DAILY 11/16/18 [History Confirmed 11/16/18] Losartan TAB* [Cozaar TAB*] 50 mg PO DAILY 11/16/18 [History Confirmed 11/16/18] Story-3 Fatty Acids (Nf) [Fish Oil (NF)] 4,000 mg PO DAILY 11/16/18 [History Confirmed 11/16/18] Rosuvastatin Calcium 10 mg PO 1700 11/16/18 [History Confirmed 11/16/18] Sotalol TAB* [Betapace 80 MG TAB*] 40 mg PO BID 11/16/18 [History Confirmed 11/03] glipiZIDE [Glipizide ER] 2.5 - 5 mg PO QAM 11/16/18 [History Confirmed 11/16/18] metFORMIN* [Glucophage 500 MG TAB *] 500 mg PO BID WITH MEALS 11/16/18 [History Confirmed 11/16/18] PMH/Surg Hx/FS Hx/Imm Hx Endocrine/Hematology History: Reports: Hx Diabetes Cardiovascular History: Reports: Hx Coronary Artery Disease, Hx Hypercholesterolemia, Hx Hypertension, Other Cardiovascular Problems/Disorders - Afib Denies: Hx Pacemaker/ICD History: Denies: Hx Renal Disease Sensory History: Reports: Hx Contacts or Glasses Denies: Hx Hearing Aid Opthamlomology History: Reports: Hx Contacts or Glasses Neurological History: Reports: Hx Transient Ischemic Attacks (TIA) Psychiatric History: Denies: Hx Panic Disorder - Surgical History Surgery Procedure, Year, and Place: RT SHOULDER ARTHROSCOPY,RT ANKLE REPAIR, BILATERAL HIP REPLACEMENTS, HEART STENTS X 2 FROM [place] (NO CARDS,SCANNED IN NORMAL MODE) Infectious Disease History: No Infectious Disease History: Denies: Traveled Outside the [place] in Last 30 Days - Family History Known Family History: Positive: Cardiac Disease, Diabetes - Social History Alcohol Use: Rare Hx Substance Use: No Substance Use Type: Reports: None Hx Tobacco Use: No Smoking Status (MU): Never Smoked Tobacco Review of Systems Negative: Fever, Chills Negative: Erythema Negative: Sore Throat Negative: Chest Pain Negative: Shortness Of Breath, Cough Negative: Abdominal Pain, Vomiting, Nausea Negative: dysuria, hematuria Negative: Myalgia, Edema Negative: Rash Neurological: Negative - dizziness, Other - Positive: difficulty with speech and reading [employer] now resolved All Other Systems Reviewed And Are Negative: Yes Physical Exam - Summary Physical Exam Summary: Constitutional: Well-developed, Well-nourished, Alert. (-) Distressed Skin: Warm, Dry HENT: Normocephalic; Atraumatic Eyes: Conjunctiva normal Neck: Musculoskeletal ROM normal neck. (-) JVD, (-) Stridor, (-) Tracheal deviation Cardio: Rhythm regular, rate normal, Heart sounds normal; Intact distal pulses; The pedal pulses are 2+ and symmetric. Radial pulses are 2+ and symmetric. (-) Murmur Pulmonary/Chest wall: Effort normal. (-) Respiratory distress, (-) Wheezes, (-) Rales Abd: Soft. (-) Tenderness, (-) Distension, (-) Guarding, (-) Rebound Musculoskeletal: (-) Edema Lymph: (-) Cervical adenopathy Neuro: Alert, Oriented x3, Strength normal, Cranial nerves II-XII are grossly intact. (-) Dysmetria, (-) Nystagmus, (-) Ataxia by finger to nose testing, (-) Sensory deficit. Psych: Mood and affect Normal Triage Information Reviewed: Yes Vital Signs On Initial Exam: Initial Vitals Temp Pulse Resp BP Pulse Ox 97.5 F 61 18 159/113 100 11/16/18 14:47 11/16/18 14:47 11/16/18 14:47 11/16/18 14:47 11/16/18 14:47 Vital Signs Reviewed: Yes - Levi Coma Scale Best Eye Response: 4 - Spontaneous Best Motor Response: 6 - Obeys Commands Best Verbal Response: 5 - Oriented Coma Scale Total: 15 Diagnostics - Vital Signs Vital Signs Temp Pulse Resp BP Pulse Ox 11/16/18 15:16 98 11/16/18 14:47 97.5 F 61 18 159/113 100 - Laboratory Lab Results: Lab Results 11/16/18 Range/Units 15:04 WBC 6.8 (3.5-10.8) 10^3/ul RBC 4.03 (4.00-5.40) 10^6/ul Hgb 12.5 L (14.0-18.0) g/dl Hct 36 L (42-52) % MCV 89 (80-94) fL MCH 31 (27-31) pg MCHC 35 (31-36) g/dl RDW 13 (10.5-15) % Plt Count 188 (150-450) 10^3/ul MPV 8.1 (7.4-10.4) fL Neut % (Auto) 63.8 % Lymph % (Auto) 23.3 % Hall % (Auto) 7.9 % Eos % (Auto) 4.9 % Baso % (Auto) 0.1 % Absolute Neuts (auto) 4.3 (1.5-7.7) 10^3/ul Absolute Lymphs (auto) 1.6 (1.0-4.8) 10^3/ul Absolute Monos (auto) 0.5 (0-0.8) 10^3/ul Absolute Eos (auto) 0.3 (0-0.6) 10^3/ul Absolute Basos (auto) 0 (0-0.2) 10^3/ul Absolute Nucleated RBC 0 10^3/ul Nucleated RBC % 0.1 Result Diagrams: 11/16/18 15:04 11/16/18 15:04 Lab Statement: Any lab studies that have been ordered have been reviewed, and results considered in the medical decision making process. - CT Brain CT CT Interpretation Completed By: Radiologist Summary of CT Findings: No intracranial mass or hemorrhage is noted. ED physician has reviewed this imaging report. - EKG 15:11 Cardiac Rate: NL - 61 bpm EKG Rhythm: Sinus Rhythm Summary of EKG Findings: Normal sinus rhythm at 61 bpm. No STEMI. NIH Scale - NIH Scale Level of Consciousness: Alert/Keenly Responsive Ask Patient the Month and His/Her Age: Both Correct Ask Pt to Open/Close Eyes and Metal Spinner/Release Non-Paretic Hand: Both Correctly Best Gaze (Only Horizontal Eye Movement): Normal Visual Field Testing: No Visual Loss Facial Paresis-Pt to Smile & Close Eyes or Grimace Symmetry: Normal/Symmetrical Motor Function - Right Arm: No Drift-Holds 10 Seconds Motor Function - Left Arm: No Drift-Holds 10 Seconds Motor Function - Right Leg: No Drift-Holds 10 Seconds Motor Function - Left Leg: No Drift-Holds 10 Seconds Limb Ataxia-Must be out of Proportion to Weakness Present: Absent Sensory (Use Pinprick to Test Arms/Legs/Trunk/Face): Normal Best Language (Describe Picture, Name Items): No Aphasia Dysarthria (Read Several Words): Normal Extinction and Inattention: No Abnormality Total Score: 0 Course/Dx - Course Course Of Treatment: A 78 y/o male brought in by his son and present to [facility] with a chief complaint of having difficulty with speech and reading at around 14:25 lasting a couple minutes. Last known well time is 14:20. Anirudh Delgado was called at 14:[address] was taken at 15:00. He feels back to baseline in the ED room. He has a Hx of TIA. The physical exam was unremarkable. GCS 15, NIH 0. Brain CT was negative. EKG at 15:11 revealed normal sinus rhythm at [address] Resendez, neuro arrived in the ED at 15:30. gin clerk from previous shift did not page Dr. Resendez. Lab results obtained and are WNL. Case discussed with Dr. Davis, Hospitalist, who accepted the patient for admission. The patient is agreeable with this plan. - Diagnoses Provider Diagnoses: TIA (transient ischemic attack) - Physician Notifications Discussed Care Of Patient With: Ej Resendez Time Discussed With Above Provider: 15:25 Instructed by Provider To: MD Will See In ED - gin clerk from previous shift did not page Dr. Resendez Discharge - Sign-Out/Discharge Documenting (check all that apply): Patient Departure - admit Patient Received Moderate/Deep Sedation with Procedure: No - Discharge Plan Condition: Fair Disposition: ADMITTED TO [facility] - Billing Disposition and Condition Condition: FAIR Disposition: Admitted to [facility] - Attestation Statements Document Initiated by Scribe: Yes Documenting Scribe: Donovan Antunez Provider For Whom Scribe is Documenting (Include Credential): Dallas Brown MD Scribe Attestation: Donovan Loyd, scribed for Dallas Brown MD on 11/16/18 at 2221. Scribe Documentation Reviewed: Yes Provider Attestation: The documentation as recorded by the Donovan houser accurately reflects the service I personally performed and the decisions made by me, Dallas Brown MD Status of Scribe Document: Viewed Consult Consult: At 16:[address] Davis, hospitalist, who accepted the patient for admission
[2018-11-16 15:39] LABS: Albumin 4.4 g/dL (3.2-5.2); Albumin/Globulin Ratio 1.6 (1-3); BUN/Creatinine Ratio 16.4 (8-20); Calcium 9.1 mg/dL (8.6-10.3); EGFR African American 49.3 (>60); EGFR Non-African American 40.8 (>60); Globulin 2.8 g/dL (2-4); HDL Cholesterol 39.3 mg/dL; Potassium 4.4 mmol/L (3.5-5.0); Total Bilirubin 0.5 mg/dL (0.2-1.0); Total Protein 7.2 g/dL (6.4-8.9)
[2018-11-16 15:46] LABS: Activated Partial Thrombo Time 34.1 seconds (26.0-36.3); INR 1.25 (0.77-1.02)
[2018-11-16] MEDS ORDERED: Nitroglycerin TAB 0.4 MG* 0.4 MG TAB SL PRN (16:22)
[2018-11-16] MEDS ORDERED: Dextrose 50% Syringe 50 ML* 25 GM/50 ML SYRINGE IV PUSH PRN (16:24)
[2018-11-16 17:28] LABS: Urine Appearance Clear; Urine Bilirubin Negative (Negative); Urine Blood Negative (Negative); Urine Color Yellow; Urine Glucose Negative (Negative); Urine Ketones Negative (Negative); Urine Nitrite Negative (Negative); Urine Protein Negative (Negative); Urine Specific Gravity 1.015 (1.010-1.030); Urine Urobilinogen Negative (Negative)
--- NOTE | 2018-11-16 17:35 | ECHO ---
Patient: VINH MCMAHON [facility] Rec#: [id number] : 1940 Date: 11/16/2018 Age: 78y Height: 175 cm / 68.9 in Weight: 96.1 kg / 211.8 lbs Sex: M BSA: 2.11 Room#: -9 Admit Date#: 11/16/2018 Type: Inpatient Referring: Ej Resendez MD Reading: Karl Blankenship DO Glycerin Supervisor: Marissa Blanchard RDCS CC: Kate Blanco MD Transthoracic Echocardiogram Indication: TIA BP: 170/72 HR: 69 Rhythm: NSR with PVCs Findings History: CAD with PCI 2002, HLD, HTN, DM, CVA, CKD, aortic stenosis. Technical Comments: The study quality is fair. Completed at 1645. Left Ventricle: The left ventricular chamber size is normal. Mild concentric left ventricular hypertrophy is observed. Global left ventricular wall motion and contractility are within normal limits. There is normal left ventricular systolic function. The estimated ejection fraction is 60-65%. Abnormal left ventricular diastolic function is observed. Left Atrium: The left atrium is moderately dilated. Right Ventricle: The right ventricle is mildly dilated. The right ventricular global systolic function is normal. Right Atrium: The right atrium is mildly dilated. Interatrial septum appears intact without evidence of shunting. The bubble study is negative. A patent foramen ovale is not demonstrated with color Doppler and agitated contrast. Aortic Valve: The aortic valve is trileaflet. The aortic valve leaflets are mildly thickened. Systolic excursion of the aortic valve cusps is reduced. There is mild aortic regurgitation. There is borderline aortic stenosis present. The mean gradient of the aortic valve is 8 mmHg. The peak instantaneous gradient of the aortic valve is 16 mmHg. Mitral Valve: Mild mitral annular calcification present. The mitral valve leaflets are mildly thickened. There is trace to mild mitral regurgitation. There is no evidence of mitral stenosis. Tricuspid Valve: The tricuspid valve leaflets are normal. There is trace to mild tricuspid regurgitation. No pulmonary hypertension is noted. There is no tricuspid stenosis. Pulmonic Valve: The pulmonic valve appears normal. There is a trace pulmonic regurgitation. There is no pulmonic stenosis. Pericardium: There is no significant pericardial effusion. Aorta: There is no dilatation of the ascending aorta. There is no dilatation of the aortic arch. The aortic root is normal in size. Pulmonary Artery: The main pulmonary artery is not well visualized. Venous: The venous system is not well visualized. The inferior vena cava appears normal in size. There is a greater than 50% respiratory change in the inferior vena cava dimension. Contrast: Intravenous agitated saline contrast was used to assess intracardiac shunting. Images 57-59. Conclusions The left ventricular chamber size is normal. Mild concentric left ventricular hypertrophy is observed. Global left ventricular wall motion and contractility are within normal limits. There is normal left ventricular systolic function. The estimated ejection fraction is 60-65%. The left atrium is moderately dilated. The right ventricle is mildly dilated. The right ventricular global systolic function is normal. There is borderline aortic stenosis present. The bubble study is negative. Compared to prior study from 11/2016, no clinically significant changes noted, bubble study not previously performed. Measurements Name Value Normal Range RVIDd (AP) 2D 3.4 cm (0.9 - 2.6) RVDdMajor (2D) 5.5 cm (2.2 - 4.4) RAd ISD 4CH 5.2 cm (3.4 - 4.9) RA (A4C)W 3.5 cm (2.9 - 4.6) IVSd (2D) 1.2 cm (0.6 - 1) LVPWd (2D) 1.2 cm (0.6 - 1) LVIDd (2D) 4.9 cm (3.6 - 5.4) LVIDs (2D) 3.1 cm - LV FS (2D) 35 % (25 - 45) Aortic Annulus 2 cm (1.4 - 2.6) Ao root diameter (2D) 3 cm (2.1 - 3.5) Ascending Ao 3.4 cm (2.1 - 3.4) Aortic arch 2.1 cm (1.8 - 3.4) LA dimension (AP) 2D 4.9 cm (2.3 - 3.8) LAd ISD 4CH 6.1 cm (2.9 - 5.3) LA ISD 4CH W 4.7 cm (2.5 - 4.5) Name Value Normal Range LA ESV BP (A/L) index 42 ml/m2 - Name Value Normal Range MV E-wave Vmax 0.7 m/sec - MV deceleration time 327 msec - MV A-wave Vmax 1 m/sec - MV E:A ratio 0.7 ratio - LV septal e' Vmax 0.06 m/sec - LV lateral e' Vmax 0.07 m/sec - LV E:e' septal ratio 11.7 ratio - LV E:e' lateral ratio 10 ratio - Name Value Normal Range AV Vmax 2 m/sec - AV VTI 47 cm - AV peak gradient 16 mmHg - AV mean gradient 8 mmHg - LVOT diameter 2 cm - LVOT Vmax 1.1 m/sec - LVOT VTI 23 cm - LVOT peak gradient 5 mmHg - LVOT mean gradient 3 mmHg - DOI (VTI) 0.49 ratio - FREDDY (continuity Vmax) 1.7 cm2 - FREDDY (continuity VTI) 1.5 cm2 - ERNESTO Vmax 1 m/sec - Name Value Normal Range TR Vmax 2.5 m/sec - TR peak gradient 25 mmHg - RAP 3 mmHg - RVSP 28 mmHg - IVC diameter 1.7 cm - Name Value Normal Range PV Vmax 1.5 m/sec - PV peak gradient 9 mmHg - CO end-diastolic Vmax 0.8 m/sec - PA end-diastolic pressur3 mmHg -
--- NOTE | 2018-11-16 18:06 | CONS ---
CONSULTATION REPORT: DATE OF CONSULT: 11/16/18 PATIENT OF: Dr. Brown and Dr. Kate Blanco. HISTORY OF PRESENT ILLNESS: This is a 78-year-old right-handed man, I am asked to evaluate for aphasia. He has actually had 2 prior episodes, one 5 years ago and one almost exactly 2 years ago where he had difficulty speaking. The second one occurred when he was reading and he noticed difficulty reading and then he had significant expressive aphasia, may have been a slight comprehensive aphasia as well. Roughly an hour and half ago he was reading and noticed again that he had difficulty reading and understanding reading and went to his and had significant difficulty finding words and could not get out speech. This lasted for about 20 minutes and resolved. There was no noticed weakness, no facial droop according to the . No headache, no visual symptoms. He is completely back to normal at this point. He did not receive tPA for either of his 2 prior episodes because of low NIH Stroke Scale. He had workup, which included a non-informative CTA, see below. Then, he was put on loop recorder electrodes through Dr. Morris, which showed AFib and he was subsequently begun on Eliquis and being maintained on aspirin as well. PAST MEDICAL HISTORY: He has a history of diabetes, hypertension, hyperlipidemia, and has mild sleep apnea, which has not been treated. MEDICATIONS AT HOME: Include: 1. Losartan 50 mg daily. 2. Eliquis 5 mg twice a day. 3. Aspirin 81 mg daily. 4. Pravastatin 10 mg at bedtime. 5. Glipizide 2.5 to 5 q. morning. 6. Vitamin D 1000 daily. 7. B12 tab 1000 mcg daily. 8. Nitroglycerin 0.4 p.r.n. 9. Metformin 500 b.i.d. 10. Amoxicillin 2000 mg once p.r.n. 11. Betapace 40 mg b.i.d. ALLERGIES: He is allergic to ATORVASTATIN, EZETIMIBE, and SIMVASTATIN. FAMILY HISTORY: He has a family history for diabetes as well as heart disease and heart attacks. The paternal grandfather may have had a stroke. SOCIAL HISTORY: He does not smoke, drink, or use drugs. He lives with his . REVIEW OF SYSTEMS: Negative in all 14 spheres other than the HPI. PHYSICAL EXAM: Temperature 97.5, pulse 66, respirations 18, blood pressure 170/ 72. He is alert and oriented with normal speech and comprehension. Naming and fluency was intact. There was no facial asymmetry. There was no visual field deficit. Cranial nerves II through XII were intact. Fundi were benign. Motor exam revealed normal tone, strength, coordination. No pronator drift. No drift in either leg. Sensation intact to light touch and pin on both sides with no extinction. Reflexes were 1+ and equal. Downgoing toes. Chest: Clear. Cardiovascular: Regular rate and rhythm. Abdomen: Soft with positive bowel sounds. Of note, he still has his loop recorder. DIAGNOSTIC STUDIES/LAB DATA: Reviewed his CT scan of his brain, which showed no acute findings. His CBC was normal other than hematocrit of 36. INR 1.25, normal PTT. CMP was abnormal for a BUN of 27, creatinine 1.[address] Rios for this. His glucose was 251. His LDL was 13 nonfasting, triglycerides were 400. We are getting an echo with bubble study currently. He has not had a bubble study before. He has had some left atrial dilatation on his prior echo. He had a CTA in November 2016, which showed 33% narrowing of the right carotid without significant stenosis elsewhere. His MRI did not show any stroke in November of 2016 and I reviewed the films and did show any significant white matter disease either. IMPRESSION AND PLAN: Mr. Da Silva most likely has a transient ischemic attack and has had prior transient ischemic attacks in the similar distribution. This could be from atherosclerotic disease of a distal artery since it is the same small area of brain affected each time, although it would be impossible given his atrial fibrillation to rule out cardiac clot. We will be checking an echo with bubble study to make sure that there is no mxyjg-cd-dvjf shunt. Most likely, this will be normal. Given his elevated creatinine, we are not obtaining a CTA at this time since he would not be a candidate for mechanical embolectomy since his NIH Stroke Scale is 0 and we do not need to get that level of detail at this point. We would be getting a carotid Doppler now to make sure that there is no significant carotid stenosis. He should have fasting lipid as well. I would hold his aspirin for the next day or so to make sure that there is no progression to his stroke, but presumably if there has been no further stroke, I would resume the aspirin. The effect of the aspirin is long lasting, so it would not affect his antiplatelet effect immediately while we observe him. I will be signing his case out to Dr. Kennedy. He will be taking over the neurological service within the next hour. Thank you for sharing his case. [id number]/[facility] #: [id number] WYATT
[2018-11-16] MEDS: Insulin LISPRO* 1 UNITS UNIT SUBCUT SCH ×2 (18:09→21:19)
--- NOTE | 2018-11-16 20:02 | HP ---
HISTORY AND PHYSICAL: DATE OF ADMISSION: 11/16/18 ADMITTING PROVIDER: Bam Davis MD CONSULTING NEUROLOGIST: Ej Resendez MD OUTPATIENT COMPLIANCE AUDITOR: Lara Morris MD PRIMARY CARE PHYSICIAN: Dr. Blanco. CHIEF COMPLAINT: Aphasia and difficulty reading. HISTORY OF PRESENT ILLNESS: Bertrand Da Silva is a 78-year-old male with a past medical history of dlt-vocmpxd-dowcqfuao diabetes mellitus; hypertension; hyperlipidemia; TIA; atrial fibrillation, on sotalol; chronic kidney disease, stage 3. He was in his usual state of health, compliant with his medications when he noticed that he had trouble reading to himself in the afternoon of the admission and then trouble communicating with his around 2:20 p.m. This resolved about 10 minutes after symptom onset while they were driving in the car to [facility] Emergency Room. There was concern for a TIA and the CT of his head noncontrast demonstrated no intracranial mass or hemorrhage. Dr. Resendez of Neurology was consulted on the case and recommended ultrasound of the carotids and bubble study echocardiogram to rule out PFO, thrombus. His LINQ recorder was also interrogated and shows no episodes of atrial fibrillation since the last interrogation on 09/16/18. The previous episode was on 09/06/18; at that time, duration 2 minutes. He was also ordered to have MRI of his brain, hold his aspirin until Monday. The patient is without other complaints. He denies any chest pain, shortness of breath, palpitations, fevers, chills, nausea, vomiting, diarrhea. He is compliant with all of his medications. PAST MEDICAL HISTORY: 1. Chv-rlixtlr-cvixcjnzh diabetes mellitus. 2. Hypertension. 3. Hyperlipidemia. 4. TIA. 5. Mild aortic stenosis. 6. Chronic kidney disease, stage 3. MEDICATIONS: Include: 1. Crestor 10 mg q.p.m. 2. Sotalol 40 mg p.o. b.i.d. 3. Metformin 500 mg p.o. b.i.d. 4. [place] 3 fatty acids 4000 mg p.o. daily. 5. Nitroglycerin tab 0.4 mg sublingual q.5 minutes p.r.n. 6. Vitamin B12 1000 mcg p.o. daily. 7. Cholecalciferol 1000 units p.o. daily. 8. Glipizide 2.5 mg 1 to 2 tabs q.a.m. 9. Aspirin 81 mg daily. 10. Eliquis 5 mg p.o. b.i.d. 11. Losartan 50 mg p.o. daily. 12. Ascorbic acid 5 mg p.o. daily. 13. Amoxicillin 2000 mg p.o. p.r.n. before dental procedures. ALLERGIES: ATORVASTATIN, muscle aches; EZETIMIBE, and SIMVASTATIN. SOCIAL HISTORY: The patient is a former smoker, 10 total pack years, quit approximately 35 years ago. Occasional alcohol use. 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 Status will be full code. Medical surrogate is his , Sun Vargas. FAMILY HISTORY: Pending. REVIEW OF SYSTEMS: Complete 14-point review of systems is negative except as per HPI. PHYSICAL EXAMINATION GENERAL APPEARANCE: No acute distress. VITAL SIGNS: Temperature 97.5, heart rate 60, respiratory rate is 16, satting 97% on room air, blood pressure 157/78. HEENT: Normocephalic, atraumatic. Pupils are equal, round, and reactive to light. Extraocular motions are intact. No scleral icterus. LUNGS: Clear to auscultation bilaterally with no wheezing, rales, or rhonchi. CARDIOVASCULAR: Regular rate and rhythm. No murmurs, rubs, or gallops. ABDOMEN: Soft, nontender, nondistended. No rebound or guarding. EXTREMITIES: Warm and well perfused. No peripheral edema. NEURO: Cranial nerves II through XII intact. Carpenter Mate strength 5/5. Hip flexion and plantar flexion 5/5. LABORATORY DATA: White count 6.8, hemoglobin 12.5, hematocrit 36, platelets 188. INR 1.25. Sodium 137, potassium 4.4, chloride 106, carbon dioxide 23, BUN 27, creatinine 1.65, glucose 214. Lactic acid 1.6. Calcium 9.1. Total bili 0.5. AST 14, ALT 15, alk phos 62. Troponin 0.00. Albumin 4.4. LDL 13, HDL 39. Triglycerides 400. IMAGING: CT head, no intracranial mass or hemorrhage is noted. EKG, normal sinus rhythm, heart rate is 61, normal axis, there are no ST elevations or depressions except for transient wandering in lead 2 baseline, QTc 466. ASSESSMENT AND PLAN: Bertrand Da Silva is a 78-year-old male with a history of TIA , pou-yxcxjny-towmkuttg diabetes mellitus, hypertension, hyperlipidemia, chronic kidney disease stage 3 presenting with aphasia times about 10 to 20 minutes, now completely resolved, NIH scale of 0. Appreciate neurology recommendations by Dr. Resendez. Follow up of the ultrasound of his carotids, which back in 2016 showed less than 50% bilaterally. We have confirmed now that the MRI can be obtained safely with his LINQ device, the issue is it would wipe out the data, but this has now been already downloaded just now and did not show any evidence of atrial fibrillation. We will get the echocardiogram with bubble study, which the bubble study was not performed back in 2017 last time. Continue on telemetry here. Continue his Eliquis 5 mg daily. Hold his aspirin until likely 11/18/18. Continue his sotalol 40 mg p.o. b.i.d., rosuvastatin 10 mg daily, his losartan 50 mg daily and hold his metformin and glipizide. Put him on sliding scale insulin q.a.c., h.s. sliding scale. He is a full code. Medical surrogate is his , Sun Vargas. He can eat carbohydrate consistent heart healthy diet after his MRI. Likely, he can be discharged tomorrow after further imaging workup. [id number]/[facility] #: [id number] WYATT
[2018-11-16] MEDS: Sotalol TAB* 80 MG PO SCH (21:19)
[2018-11-16] MEDS: Apixaban* 5 MG TAB PO SCH (21:19)
[2018-11-17 07:38] VITALS: BP 117/56
[2018-11-17] MEDS: Apixaban* 5 MG TAB PO SCH (07:56)
[2018-11-17] MEDS: Sotalol TAB* 80 MG PO SCH (07:57)
[2018-11-17] MEDS: Insulin LISPRO* 1 UNITS UNIT SUBCUT SCH (08:04)
[2018-11-17] MEDS ORDERED: Cholecalciferol TAB* 1000 UNITS PO SCH (09:00)
[2018-11-17] MEDS ORDERED: Cyanocobalamin TAB* 500 MCG PO SCH (09:00)
[2018-11-17] MEDS ORDERED: Ascorbic Acid TAB* 500 MG PO SCH (09:00)
--- NOTE | 2018-11-17 12:30 | DS ---
DISCHARGE SUMMARY: DATE OF ADMISSION: 11/16/18 DATE OF DISCHARGE: 11/17/18 ATTENDING PROVIDER ON THE DAY OF DISCHARGE: Bam Davis MD OUTPATIENT ORNAMENTAL METAL WORKER: Dr. Lara Morris. PRIMARY CARE PHYSICIAN: Dr. Kate Blanco. CONSULTING NEUROLOGIST: Dr. Ej Resendez. CHIEF COMPLAINT: Aphasia and difficulty reading. PRINCIPAL DIAGNOSIS: Transient ischemic attack; moderate left internal carotid artery stenosis. HISTORY OF PRESENT ILLNESS AND HOSPITAL COURSE: Bertrand Da Silva is a 78-year-old male with past medical history of yxf-irnrvjn-fltzftkxx diabetes mellitus, hypertension, hyperlipidemia, TIAs x2, atrial fibrillation (on sotalol and Eliquis), chronic kidney disease stage 3. Please see H and P for full details, but he had a transient episode of aphasia and difficulty understanding, reading , comprehension lasting about 10 to 20 minutes at 2:20 p.m. on 11/16/18. This resolved on the way to the emergency room. He had a negative CT head noncontrast with no intracranial mass or hemorrhage. Dr. Resendez consulted on the case. Echo was performed with bubble study and showed no patent foramen ovale. Ejection fraction was 60% to 65%. There was abnormal left ventricular diastolic function. Left atrium mildly dilated. Borderline aortic stenosis, mild aortic regurgitation. He had interrogation of his LINQ device, which showed no evidence of atrial fibrillation events since last recording in September. Previous AFib had lasted for 2 minutes in August. He had a brain MRI, which showed no evidence of acute infarction by DWI. There was moderate sinus mucosal inflammatory disease with air- fluid levels in the left maxillary sinus and sphenoid sinus with the left mastoid effusion. In the correct clinical setting, this may represent acute sinusitis. Dr. Kennedy recommended initiation of dual antiplatelets with the addition of Plavix for 21 days and continuation of his Eliquis. Carotid Doppler showed atheromatous disease. No hemodynamically significant stenosis of the right internal carotid artery (less than 50% stenosis by NASCET criteria). There was elevated peak systolic velocity of the left internal carotid artery consistent with left internal carotid artery stenosis between 50% and 69% by NASCET criteria and no additional neurological events. His LDL nonfasting was 13, HDL 39, triglycerides 400. Last A1c was 7.2% on 11/06/18. He is being recommended for follow up with Dr. Resendez within 2 to 4 weeks and his primary care physician within 7 days. DISCHARGE MEDICATIONS: Include, 1. Eliquis 5 mg p.o. b.i.d. 2. Vitamin C 500 mg p.o. daily. 3. Cholecalciferol 1000 units p.o. daily. 4. Vitamin B12 1000 micrograms p.o. daily. 5. Nitroglycerin 0.4 mg sublingual q.5 minutes p.r.n. 6. Zoloft 40 mg p.o. b.i.d. 7. Amoxicillin 2000 mg p.o. p.r.n. prior to dental procedures. 8. Aspirin 81 mg daily to be started 11/18/18. 9. Plavix 75 mg p.o. daily for 21 days and stop. 10. Glipizide 2.5 mg to 5 mg p.o. q.a.m. 11. Losartan 15 mg p.o. daily. 12. Metformin 500 mg p.o. b.i.d. 13. [place] 3 fatty acids 4000 mg p.o. daily. 14. Crestor 10 mg p.o. nightly. DISCHARGE DIET: Heart healthy, carbohydrate consistent, unchanged. FOLLOWUP: Dr. Kate Blanco within [address] Resnedez within 2 to 4 weeks. TIME SPENT: Time spent on discharge was 35 minutes. [id number]/[facility] #: [id number] [facility]
== END 2018-11-17 10:20 | disposition home or self-care (01) ==
LOC: ED 14:42 → MEDTELE 16:15
PROVIDERS: ADMIT Internal Medicine; ATTEND Internal Medicine
DX: G45.9 Transient cerebral ischemic attack, unspecified (principal); I65.22 Occlusion and stenosis of left carotid artery; R47.01 Aphasia; Z79.82 Long term (current) use of aspirin; E11.9 Type 2 diabetes mellitus without complications; I10 Essential (primary) hypertension; E78.5 Hyperlipidemia, unspecified; N18.3 Chronic kidney disease, stage 3 (moderate)
CPT/HCPCS: 36415; 70450; 70551; 71045; 80053; 80061; 81003; 83605; 84484; 85025; 85610; 85730; 93005; 93306; 93880; 99284; A9270-GY; G0378